=== PATIENT | female | born 1935 | race Caucasian/White ===

== ENCOUNTER 2018-10-02 15:39 | Emergency (ER) | payer MEDICARE ==
[~2018-10-02] VITALS: Ht 152.4 cm; Wt 61.7 kg
[~2018-10-02 15:39] MED LIST: ACIDOPHILUS1 EAC4; CALCIUM 500+D1 EACH PO; CALCIUM 600 +1 EAC8; COQ-10; CRESTOR10 MG PO; NEXIUM40 MG PO; ULTRAM50 MG PO
[2018-10-02 16:24] LABS: BASOPHILS % 0.4 % (0.0-1.0); EOSINOPHILS # (AUTO) 0.1 (0.0-0.4); EOSINOPHILS % 0.5 % (0.0-6.0); HEMATOCRIT 40.7 % (34.2-44.1); HEMOGLOBIN 13.6 g/dL (12.0-16.0); LYMPHOCYTES # (AUTO) 0.8 (1.0-3.2); LYMPHOCYTES % 7.2 % (18.0-39.1); MEAN CORPUSCULAR HEMOGLOBIN 29.7 pg (28-32); MEAN CORPUSCULAR HGB CONC 33.4 g/dL (31-35); MEAN CORPUSCULAR VOLUME 88.9 fL (81-99); MONOCYTES # (AUTO) 0.6 (0.2-0.8); MONOCYTES % 5.6 % (4.4-11.3); NEUTROPHILS # (AUTO) 9.1 (2.1-6.9); PLATELET COUNT 276 x10e3/uL (140-360); RED BLOOD COUNT 4.58 x10e6/uL (3.6-5.1); RED CELL DISTRIBUTION WIDTH 13.3 % (11.7-14.4)
[2018-10-02 16:42] LABS: ALANINE AMINOTRANSFERASE 14 IU/L (0-55); ALBUMIN 3.8 g/dL (3.5-5.0); ALBUMIN/GLOBULIN RATIO 1.1 (0.8-2.0); ALKALINE PHOSPHATASE 84 IU/L (40-150); BLOOD UREA NITROGEN 15 mg/dL (7-26); BUN/CREATININE RATIO 20 (6-25); CALCIUM 9.6 mg/dL (8.4-10.2); CARBON DIOXIDE 28 mmol/L (22-29); CHLORIDE 101 mmol/L (98-107); CREATINE KINASE 72 IU/L (29-168); CREATININE, SERUM 0.75 mg/dL (0.57-1.11); EST GLOMERULAR FILTRATION RATE > 60 ML/MIN (60-); GLUCOSE 105 mg/dL (74-118); LIPASE 9 U/L (8-78); SODIUM 138 mmol/L (136-145)
--- NOTE | 2018-10-02 16:59 | Diagnostic Imaging Report ---
Exam: Chest one view Clinical history: Stomach cramps Comparison: March 21, 2009 Findings: There is no evidence of pulmonary consolidation, pleural effusion, or pneumothorax. The cardiac size is within normal limits. The regional osseous structures are unremarkable. Impression: 1. No radiographic evidence of acute cardiorespiratory disease. Signed by: Dr. Fab Del Cid MD on 10/02/2018 4:55 PM
--- NOTE | 2018-10-02 18:19 | Diagnostic Imaging Report ---
EXAM: CT Abdomen and Pelvis WITH contrast INDICATION: ^abd pain ^[id number] ^1715 COMPARISON: CT dated 04/16/2014 TECHNIQUE: Abdomen and pelvis were scanned utilizing a multidetector helical scanner from the lung base to the pubic symphysis after administration of IV contrast. Coronal and sagittal reformations were obtained. Dose modulation, iterative reconstruction, and/or weight based adjustment of the mA/kV was utilized to reduce the radiation dose to as low as reasonably achievable. Routine protocol was performed. Scan was performed when during portal venous phase. IV CONTRAST: 100 mL of Isovue-370 ORAL CONTRAST: Water COMPLICATIONS: None RADIATION DOSE: Total DLP: 325.6 mGy*cm Estimated effective dose: (DLP x 0.015 x size factor) mSv CTDIvol has been reviewed. It is below the limits set by the Radiation Protocol Committee (RPC). FINDINGS: LINES and TUBES: None. LOWER THORAX: Unremarkable. Bilateral Bochdalek hernia. HEPATOBILIARY: Segment IV, 1.3 cm hypodensity and segment 5 tiny hypodensity (series 2, image 33) are unchanged since prior CT and are probably cysts. There is a new or more conspicuous segment V, 0.4 cm hypodensity. No hepatic mass. No biliary ductal dilation. GALLBLADDER: No radio-opaque stones or sludge. No wall thickening. SPLEEN: No splenomegaly. PANCREAS: No focal masses or ductal dilatation. ADRENALS: No adrenal nodules KIDNEYS/URETERS: Kidneys enhance symmetrically. No hydronephrosis. No cystic or solid mass lesions. No stones. Few too small to characterize hypodensities. GI TRACT: No abnormal distention or evidence of bowel obstruction. Mild wall thickening of the transverse and ascending colon, could be due to underdistention. Fluid-filled small bowel loops. Colonic diverticulosis without evidence of diverticulitis. Moderate size hiatal hernia. Appendix is normal. PELVIC ORGANS/BLADDER: Unremarkable. LYMPH NODES: No lymphadenopathy. VESSELS: There is mild atherosclerotic disease in the aorta and major arterial branches. PERITONEUM / RETROPERITONEUM: No free air or fluid. BONES: Generalized demineralization. Grade 1or 2 retrolisthesis of L5 in relation to L4. L4-L5 and L5-S1 degenerative changes. SOFT TISSUES: Unremarkable. IMPRESSION: 1. Mild wall thickening of the ascending and transverse colon as well as fluid-filled small bowel loops. Enterocolitis cannot be excluded in the appropriate clinical context. Otherwise, no acute inflammatory process in the abdomen/pelvis. 2. Hepatic hypodensities, likely cysts. 3. Colonic diverticulosis without evidence of diverticulitis. 4. Moderate size hiatal hernia. Signed by: Dr. Torsten Centeno MD on 10/02/2018 6:16 PM
[2018-10-02] MEDS ORDERED: CIPRO500 MG PO (18:42)
[2018-10-02] MEDS ORDERED: FLAGYL500 MG PO (18:42)
[2018-10-02] MEDS ORDERED: IOPAMIDOL 370 MG/ML 200 ML INFUS..BTL INJ ONE (18:53)
[2018-10-02] MEDS ORDERED: SODIUM CHLORIDE 0.9% 50ML 50 ML ONE (18:53)
[2018-10-02 19:37] VITALS: BP 115/68
== END 2018-10-02 19:40 | disposition home or self-care (01) ==
LOC: ER 15:47
DX: K52.9 Noninfective gastroenteritis and colitis, unspecified (principal); K57.30 Diverticulosis of large intestine without perforation or abscess without bleeding; K44.9 Diaphragmatic hernia without obstruction or gangrene; K76.9 Liver disease, unspecified
CPT/HCPCS: 36415; 71045; 74177; 80053; 82550; 82553; 83690; 84484; 85025; 93005; 99284; Q9967

== ENCOUNTER 2018-10-21 09:35 | Emergency (ER) | payer MEDICARE ==
[~2018-10-21] VITALS: Ht 152.4 cm; Wt 61.2 kg
[~2018-10-21 09:35] MED LIST changes: +CIPRO500 MG PO; +FLAGYL500 MG PO
--- OUTSIDE RECORDS SUMMARY | 2018-10-21 09:39 | XMS REPORT | Clinical Summary ---
[facility] Address Unknown Phone Unavailable Care Team Providers Care Geotechnical Intern Name Role Phone Shalini Mayers MD PCP Allergies Comments Active Allergy Reactions Severity Noted Date Severe headache Indomethacin Sodium Other (See 10/02/2012 Comments) Medications End Date Status Medication Sig Dispensed Refills Start Date Active esomeprazole (NEXIUM) 40 Take 40 mg by 0 MG capsule mouth. Active rosuvastatin (CRESTOR) 10 Take 10 mg by 0 MG tablet mouth daily. Active calcium carbonate-vitamin Take 1 tablet 0 D3 (CALCIUM 600 + D,3,) by mouth 600 mg(1,500mg) -400 unit daily. Tab Active coenzyme Q10 200 mg Take 200 mg 0 capsule by mouth. Active multivitamin (THERAGRAN) Take 1 tablet 0 per tablet by mouth. Active cholecalciferol, vitamin Take 1,000 0 D3, (VITAMIN D3) 1,000 Units by unit capsule mouth. Active aspirin 81 MG EC tablet Take 81 mg by 0 mouth daily. Active lactobacillus acidophilus Take by mouth 0 (ACIDOPHILUS) Cap daily. Active Problems Problem Noted Date Right bundle branch block 10/03/2012 Osteoarthritis 10/03/2012 Osteoporosis 10/03/2012 Hx of breast cancer 10/03/2012 Overview: 1976 Radical mastectomy on the right side followed by 27 doses of radiation 1999 mastectomy on left, no recurrence- took Tamofixen and another agent x 5 yrs 2003 revision of left scar tissue Mesenteric ischemia, presenting as GI bleed 5 yrs ago. No etiology was 10/03/2012 determined. Syncope 10/02/2012 Hyperlipidemia GERD (gastroesophageal reflux disease) Family History Medical History Relation Name Comments Heart disease Father Cancer Maternal Aunt Sofia stomach Cancer Maternal Aunt Roseann breast Hyperlipidemia Mother Hypertension Mother Cancer Paternal Grandmother Relation Name Status Comments Father Maternal Aunt Sofia Maternal Aunt Roseann Alive Mother Paternal Grandmother Sister Dayna Alive Sister Jose Manuel Alive Social History Date Tobacco Use Types Packs/Day Years Used 02/12/1960 - 10/03/1967 Former Smoker Cigarettes 0.2 7 Smokeless Tobacco: Never Used Alcohol Use Drinks/Week oz/Week Comments No Sex Assigned at Date Recorded Not on file Industry Job Start Date Occupation Not on file Not on file Not on file Travel End Travel History Travel Start No recent travel history available. Last Filed Vital Signs Not on file Plan of Treatment Health Maintenance Due Date Last Done Comments INFLUENZA VACCINE 11/11/2017 Results Not on fileafter 10/20/2017 Insurance Payer Benefit Subscriber ID Type Phone Address Plan / Group [employer] - MEDICARE [employer] xxxxxxxx [phone] [address] [place] [address] HMO POS PPO
--- OUTSIDE RECORDS SUMMARY | 2018-10-21 09:39 | XMS REPORT | Summary of Care ---
Author Author EVARISTO LEAL M.D. Organization Unknown Address [facility] Phone Unavailable Care Team Providers Care Risk Compliance Manager Name Role Phone EVARISTO LEAL M.D. Unavailable Unavailable Unavailable Unavailable Functional Status Name Dates Details Functional status health issues are not documented Status: Name Dates Details Cognitive status health issues are not documented Status: Problems Name Dates Details Primary localized osteoarthritis of knees, bilateral (715.16, M17.0) Status: Active Bilateral knee pain (719.46, M25.561) Status: Active Medications Name Dates Details NexIUM PACK Active OrthoVisc 30 MG/2ML Intra-articular Solution Prefilled Syringe 30mg 2ml syringe per knee, reuires 2 per week for 4 weeks,8 total mailed to clin ic or patient * Quantity: 4 Refills: 0 EVARISTO LEAL M.D. * Start : 24-May-2017 Active 2 ML Syringe Allergies and Adverse Reactions Name Dates Details No Known Drug Allergies (Allergy) Status: Active Past Medical History Name Dates Details History of malignant neoplasm (V10.90, Z85.9) Status: Resolved Procedures Procedure Dates Details History of Mastectomy Completed Immunization Name Dates Details Immunizations not documented Social History Name Dates Details Unknown if ever smoked Vital Signs Date Test Result Details No Known Vitals to report Results Date Description Value Details Results not documented Plan of Care Name Dates Details Planned Observations Planned Goals not documented Planned Encounters Physical Therapy Referral Ortho Appointment; EVARISTO LEAL M.D. On: 27-Jun-2017 8:00 Instructions Name Dates Details Instructions not documented Encounters Appointment; EVARISTO LEAL M.D. Encounter Diagnosis: Problem not documented On: 09-May-2017 8:00 Appointment; EVARISTO LEAL M.D. Encounter Diagnosis: Problem not documented On: 13-Jun-2017 8:00 Appointment; EVARISTO LEAL M.D. Encounter Diagnosis: Problem not documented On: 20-Jun-2017 8:00
--- OUTSIDE RECORDS SUMMARY | 2018-10-21 09:40 | XMS REPORT ---
Author Author [facility] Address Unknown Phone Unavailable Care Team Providers Care Groover Operator Name Role Phone Radha HOOPER Unavailable Unavailable Payers Payer Name Policy Type Policy Number Effective Date Expiration Date Problems This patient has no known problems. Allergies, Adverse Reactions, Alerts Allergy Name Allergy Type Status Severity Reaction(s) Onset Date Inactive Date Treating Clinician Comments indomethacin sodium DA Active U 2011-05-12 00:00:00 indomethacin DA Active U 2011-05-12 00:00:00 Medications This patient has no known medications. Results Test Description Test Time Test Comments Text Results Atomic Results Result Comments CT ABDOMEN/PELVIS W 2018-10-02 18:04:00 [place] [address] Patient Name: GUERO ROMERO MR #: [id number] : 1935 Age/Sex: 83/F Req #: [id number] Adm Physician: Ordered by: JON HOOPER MD Report #: [id number] Location: ER Room/Bed: Procedure: [id number] CT/CT ABDOMEN/PELVIS W Exam Date: 10/02/18 Exam Time: 1715 REPORT STATUS: Signed EXAM: CT Abdomen and Pelvis WITH contrast INDICATIO N: abd pain [id number] 1715 COMPARISON: CT dated 04/16/2014 TECHNIQUE: Abdomen and pelvis were scanned utilizing a multidetector helical scanner from the lung base to the pubic symphysis after administration of IV contrast. Coronal and sagittal reformations were obtained. Dose modulation, iterative reconstruction, and/or weight based adjustment of the mA/kV was utilized to reduce the radiation dose to as low as reasonably achievable. Routine protocol was performed. Scan was performed when during portal venous phase. IV CONTRAST: 100 mL of Isovue-370 ORAL CONTRAST: Water COMPLICATIONS: None RADIATION DOSE: Total DLP: 325.6 mGy*cm Estimated effective dose: (DLP x 0.015 x size factor) mSv CTDIvol has been reviewed. It is below the limits set by the Radiation Protocol Committee (RPC). FINDINGS: LINES and TUBES: None. LOWER THORAX: Unremarkable. Bilateral Bochdalek hernia. HEPATOBILIARY: Segment IV, 1.3 cm hypodensity and segment 5 tiny hypodensity (series 2, image 33) are unchanged since prior CT and are probably cysts. There is a new or more conspicuous segment V, 0.4 cm hypodensity. No hepatic mass. No biliary ductal dilation. GALLBLADDER: No radio-opaque stones or sludge. No wall thickening. SPLEEN: No splenomegaly. PANCREAS: No focal masses or ductal dilatation. ADRENALS: No adrenal nodules KIDNEYS/URETERS: Kidneys enhance symmetrically. No hydronephrosis. No cystic or solid mass lesions. No stones. Few too small to characterize hypodensities. GI TRACT: No abnormal distention or evidence of bowel obstruction. Mild wall thickening of the transverse and ascending colon, could be due to underdistention. Fluid- filled small bowel loops. Colonic diverticulosis without evidence of diverticulitis. Moderate size hiatal hernia. Appendix is normal. PELVIC ORGANS/BLADDER: Unremarkable. LYMPH NODES: No lymphadenopathy. VESSELS: There is mild atherosclerotic disease in the aorta and major arterial branches. PERITONEUM / RETROPERITONEUM: No free air or fluid. BONES: Generalized demineralization. Grade 1or 2 retrolisthesis of L5 in relation to L4. L4-L5 and L5-S1 degenerative changes. SOFT TISSUES: Unremarkable. IMPRESSION: 1. Mild wall thickening of the ascending and transve rse colon as well as fluid-filled small bowel loops. Enterocolitis cannot be excluded in the appropriate clinical context. Otherwise, no acute inflammatory process in the abdomen/pelvis. 2. Hepatic hypodensities, likely cysts. 3. Colonic diverticulosis without evidence of diverticulitis. 4. Moderate size hiatal hernia. Signed by: Dr. Torsten Delong MD on 10/02/2018 6:16 PM Dictated By: TORSTEN DELONG MD 15 Transcribed By: GURVINDER on 10/02/181815 COPY TO: JON HOOPER MD CHEST SINGLE (PORTABLE) 2018-10-02 16:54:00 [place] [address] Patient Name: GUERO ROMERO MR #: [id number] : 1935 Age/Sex: 83/F Req #: [id number] Adm Physician: Ordered by: JON HOOPER MD Report #: [id number] Location: ER Room/Bed: Procedure: [id number] DX/CHEST SINGLE (PORTABLE) Exam Date: 10/02/18 Exam Time: 1600 REPORT STATUS: Signed Exam: Chest one view Clinical history: Stomach c ramps Comparison: March 21, 2009 Findings: There is no evidence of pulmonary consolidation, pleural effusion, or pneumothorax. The cardiac size is within normal limits. The regional osseous structures are unremarkable. Impression: 1. No radiographic evidence of acute cardiorespiratory disease. Signed by: Dr. Fab Del Cid MD on 10/02/2018 4:55 PM Dictated By: ROMEL DEL CID MD [id number] Transcribed By: GURVINDRE on 10/02/18 [id number] COPY TO: JON HOOPER MD
--- NOTE | 2018-10-21 11:00 | NUR ---
PT RESTING, VITAL SIGNS STABLE, FAMILY AT BEDSIDE, PT VOICES NO COMPLAINTS AT THIS TIME.
--- NOTE | 2018-10-21 11:20 | Diagnostic Imaging Report ---
Chest, 2 views, 10/21/2018. History: Syncope. Comparison: 10/02/2018. Findings: The cardiomediastinal silhouette and pulmonary vasculature are within normal limits. The lungs are clear without evidence of consolidation or pleural effusion. Degenerative changes are present in the thoracic spine and right shoulder. Surgical clips are noted in the left axilla. There are no acute osseous or soft tissue abnormalities. Impression: No acute cardiopulmonary abnormality. Signed by: Wilmer Centeno on 10/21/2018 11:17 AM
--- NOTE | 2018-10-21 11:27 | Diagnostic Imaging Report ---
Examination: CT head without contrast Clinical Indication: Syncope with collapse.. Technique: Transaxial noncontrast images from the skull base through the vertex were obtained. Sagittal and coronal reformatted images were done. Dose modulation, iterative reconstruction, and/or weight based adjustment of the mA/kV was utilized to reduce the radiation dose to as low as reasonably achievable. Comparison: None. Findings: Scalp: No abnormalities. Bones: Intact. No fractures. No blastic or lytic lesions. Brain sulci: Appropriate for patient's age. Ventricles: Normal in size and configuration. No hydrocephalus. . Extra-axial space: No abnormalities. Parenchyma: There are patchy areas of low-attenuation within subcortical and periventricular white matter, nonspecific, but could represent microvascular ischemic disease. No masses, hemorrhage, or acute or chronic cortical based vascular insults. Suprasellar region: No abnormalities. Craniocervical junction: The foramen magnum is patent. No Chiari one malformation. Incidental findings: Atherosclerotic calcification of the cavernous and supraclinoid internal carotid and V4 segments of the bilateral vertebral arteries. Impression: 1. No acute intracranial finding. 2. Mild chronic microvascular ischemic change. Signed by: Dr. Vanesa Barber M.D. on 10/21/2018 11:24 AM
--- NOTE | 2018-10-21 12:00 | NUR ---
PT RESTING, VITAL SIGNS STABLE.
[2018-10-21] MEDS ORDERED: ACETAMINOPHEN 325 MG TAB ONE (12:38)
[2018-10-21] MEDS ORDERED: ACETAMINOPHEN 325 MG TAB PO ONE (12:45)
--- NOTE | 2018-10-21 13:09 | NUR ---
PT TO BE TRANSFERRED, PT AND FAMILY AWARE OF POC, TRANSFER TO [facility]
[2018-10-21] MEDS ORDERED: CEFTRIAXONE SOD 1 GM/NS 50 ML 50 ML IV ONE ×2 (13:15)
--- NOTE | 2018-10-21 13:34 | NUR ---
PTS BROUGHT PT LUNCH TO EAT, PT EATING AND DRINKING, VITAL SIGNS STABLE. PT VOICES NO COMPLAINTS AT THIS TIME.
--- NOTE | 2018-10-21 14:04 | NUR ---
[facility] CALLED FOR TRANSPORT 35 MIN ETA
[2018-10-21 14:26] VITALS: BP 150/67
== END 2018-10-21 14:33 | disposition other institution (70) ==
LOC: FSED 09:35
DX: R55 Syncope and collapse (principal); R42 Dizziness and giddiness; N30.90 Cystitis, unspecified without hematuria; K21.9 Gastro-esophageal reflux disease without esophagitis; M25.562 Pain in left knee; M25.561 Pain in right knee
CPT/HCPCS: 70450; 71046; 80048; 80076; 81003; 82553; 83880; 84484; 85025; 85379; 87086; 93005; 99284; J0696

== ENCOUNTER 2018-11-05 17:12 | Emergency (ER) | payer MEDICARE ==
[~2018-11-05] VITALS: Ht 304.8 cm; Wt 61.2 kg
--- OUTSIDE RECORDS SUMMARY | 2018-11-05 17:16 | XMS REPORT | Clinical Summary ---
Author Author OCTAVIA idiag [employer] [facility] Address Unknown Phone Unavailable Care Team Providers Care Jet Worker Name Role Phone Shalini Mayers MD PCP [...] by mouth 0 (ACIDOPHILUS) Cap daily. Active calcium carbonate/vitamin Use as 0 D3 (CALCIUM 500 + D, D3, directed 500 ORAL) mg in the mouth or throat as needed. Active ibuprofen (ADVIL,MOTRIN) Take 800 mg 0 800 MG tablet by mouth as needed. Active cycloSPORINE (RESTASIS) Place 0.5 0 0.05 % ophthalmic drops into emulsion both eyes 2 (two) times daily. 10/23/2018 Discontinued esomeprazole (NEXIUM) 40 Take 40 mg by 0 MG capsule mouth daily. 10/28/2018 ciprofloxacin HCl (CIPRO) Take 1 tablet 10 tablet 0 500 MG tablet (500 mg 9 total) by mouth 2 (two) times daily for 5 days. Active Problems Problem Noted Date Right bundle branch block 10/03/2012 Osteoarthritis 10/03/2012 Osteoporosis 10/03/2012 Hx of breast cancer 10/03/2012 Overview: 1975 Radical mastectomy on the right side followed by 27 doses of radiation 1999 mastectomy on left, no recurrence- took Tamofixen and another agent x 5 yrs 2003 revision of left scar tissue Mesenteric ischemia, presenting as GI bleed 5 yrs ago. No etiology was 10/03/2012 determined. Syncope 10/02/2012 Hyperlipidemia GERD (gastroesophageal reflux disease) Encounters Care Team Description Date Type Specialty Shahrzad Martinez MD Waheed, Umar, MD Syncope, unspecified syncope type 10/21/2018 Hospital Cardiology - Encounter 10/23/2018 10/21/2018 Travel Shahrzad Martinez MD 10/21/2018 Documentation Internal Medicine after 11/04/2017 Family History Medical History Relation Name Comments Heart disease Father Cancer Maternal Aunt Sofia stomach Cancer Maternal Aunt Roseann breast Hyperlipidemia Mother Hypertension Mother Cancer Paternal Grandmother Relation Name Status Comments Father Maternal Aunt Sofia Maternal Aunt Roseann Alive Mother Paternal Grandmother Sister Dayna Alive Sister LaDhunter Alive Social History Date Tobacco Use Types [...] travel history available. Last Filed Vital Signs Time Taken Vital Sign Reading 10/23/2018 11:00 AM CDT Blood Pressure 130/63 10/23/2018 11:00 AM CDT Pulse 106 10/23/2018 11:00 AM CDT Temperature 36.1 C (97 F) 10/23/2018 11:00 AM CDT Respiratory Rate 18 10/23/2018 11:00 AM CDT Oxygen Saturation 96% - Inhaled Oxygen - Concentration 10/23/2018 8:22 AM CDT Weight 62.4 kg (137 lb 9.1 oz) 10/21/2018 4:13 PM CDT Height 152.4 cm (5') 10/23/2018 8:22 AM CDT Body Mass Index 26.87 Plan of Treatment Not on file Procedures Comments Procedure Name Priority Date/Time Associated Diagnosis RHYTHM STRIP - SCAN 10/27/2018 2:02 PM CDT REPORT OF PROCEDURE - 10/27/2018 ENDOSCOPY SCAN 9:50 AM CDT RHYTHM STRIP - SCAN 10/27/2018 9:50 AM CDT CBC W/PLT COUNT & AUTO Routine 10/22/2018 DIFFERENTIAL 4:13 AM CDT BASIC METABOLIC PANEL (7) Routine 10/22/2018 4:13 AM CDT CBC W/PLT COUNT & AUTO Routine 10/22/2018 DIFFERENTIAL 4:13 AM CDT TROPONIN I STAT 10/21/2018 11:39 PM CDT 2D ECHO W/ DOPPLER RAD 10/21/2018 (CW/PW/COLOR) 9:35 PM CDT URINALYSIS W/ REFLEX Routine 10/21/2018 URINE CULTURE 6:48 PM CDT TROPONIN I STAT 10/21/2018 5:22 PM CDT after 11/04/2017 Results * RHYTHM STRIP - SCAN (10/27/2018 2:02 PM CDT) Only the most recent of 2 results within the time period is included. Narrative Performed At * EKG-SCANNED (10/27/2018 9:50 AM CDT) Narrative Performed At * CBC with platelet count + automated diff (10/22/2018 4:13 AM CDT) WBC 7.3 3.5 - 10.5 K/L [facility] RBC 4.15 3.93 - 5.22 M/L [facility] Hemoglobin 12.3 11.2 - 15.7 GM/DL [facility] Hematocrit 38.0 34.1 - 44.9 % [facility] MCV 91.6 79.4 - 94.8 fL [facility] MCH 29.6 25.6 - 32.2 pg [facility] MCHC 32.4 32.2 - 35.5 GM/DL [facility] RDW 13.8 11.7 - 14.4 % [facility] Platelets 273 150 - 450 K/CU MM [facility] MPV 9.3 (L) 9.4 - 12.3 fL [facility] nRBC 0 0 - 0 /100 WBC [facility] % Neutros 52 % [facility] % Lymphs 32 % [facility] % Monos 10 % [facility] % Eos 4 % [facility] % Baso 1 % [facility] # Neutros 3.81 1.56 - 6.13 K/L [facility] # Lymphs 2.36 1.18 - 3.74 K/L [facility] # Monos 0.76 (H) 0.24 - 0.36 K/L [facility] # Eos 0.27 0.04 - 0.36 K/L [facility] # Baso 0.07 0.01 - 0.08 K/L [facility] Immature 0 0 - 1 % [facility] Granulocytes-[facility] Specimen Blood Performing Organization Address City/State/Zipcode Phone Number [facility] [address] [place] [address] MEDICAL CENTER * Basic Metabolic Panel (10/22/2018 4:13 AM CDT) Sodium 141 136 - 145 meq/L [facility] Potassium 3.9 3.5 - 5.1 meq/L [facility] Chloride 112 (H) 98 - 107 meq/L [facility] CO2 23 22 - 29 meq/L [facility] BUN 12 7 - 21 mg/dL [facility] Creatinine 0.65 0.57 - 1.25 mg/dL [facility] Glucose 89 70 - 105 mg/dL [facility] Calcium 8.4 8.4 - 10.2 mg/dL [facility] EGFR 87Comment: ESTIMATED GFR IS mL/min/1.73 sq m [facility] NOT ACCURATE CREATININE [facility] CLEARANCE IN PREDICTING GLOMERULAR FILTRATION RATE. ESTIMATED GFR IS NOT APPLICABLE FOR DIALYSIS PATIENTS. Specimen Blood Performing Organization Address City/[facility]/Zipcode Phone Number [place] [phone] * Troponin I (10/21/2018 11:39 PM CDT) Only the most recent of 2 results within the time period is included. Troponin I 0.02 0.00 - 0.03 ng/mL [facility] Specimen Blood Narrative Performed At Troponin I (TnI) levels must be interpreted in the context of the presenting [facility] symptoms and the clinical findings. Elevated TnI levels indicate myocardial [facility] damage, but are not specific for ischemic heart disease. Elevated TnI levels are seen in patients with other cardiac conditions (including myocarditis and congestive heart failure), and slight TnI elevations occur in patients with other conditions, including sepsis, renal failure, acidosis, acute neurological disease, and persistent tachyarrhythmia. Performing Organization Address City/State/Zipcode Phone Number [address] [address] [facility] * 2D Echo W/Doppler(CW/PW/Color) (10/21/2018 9:35 PM CDT) Ejection Fraction [facility] Specimen Narrative Performed At Transthoracic Echocardiography Report (TTE) [facility] E[facility]ART[facility] Demographics [facility] Patient NameGUERO CHOI Date of Study10/21/2018 [place] Female Visit [id number] Unknown Room [id number] Number Date of 1935RefSameera Mckenzie Physician Age 83 year(s)SonographerSifeoma Nassar [facility] Senior Copywriter Adithya Yeepreray Carvajal PhysicianMD Procedure Type of Study TTE procedure:2DECHO W DOPPLER(CW/PW/COLOR) (RAD) Indications:Unexplained Pre-syncope/Syncope. Clinical History CANCER, HLD, RBBB Height: 60 inches Weight: 61.23 kg (135 lbs) BSA: 1.58 m^2 BMI: 26.37 kg/m^2 HR: 112 bpm BP: 130/68 mmHg Summary 1. Normal LV size and function All of the LV segments contract normally . Estimated LVEF by qualitative assessment is normal (55-60%) 2. Degree of diastolic dysfunction (LAP assessment) is inconclusive due to mitral annular calcification . 3. Normal RV size and function. 4. Mild aortic stenosis. VALENTE by CI is 1.55 cm2. 5. Estimated peak systolic PA pressure is 30-35 mmHg . Previous Study In comparison with the prior exam 10-07-12 the following changes are noted: is new . Signature Findings Rhythm/BPSinus tachycardia during the exam. Left Ventricle The left ventricle is chamber size (by PSLAX dimension) is normal (female - LVIDd 3.8-5.2cm) . Normal LV wall thickness. All of the LV segments contract normally . Global LV systolic function normal . Estimated LVEF by qualitative assessment is normal (55-60%) . Degree of diastolic dysfunction (LAP assessment) is inconclusive due to mitral annular calcification . Left AtriumLA size is mildly enlarged (35-41 ml/m2) . Right VentricleThe right ventricular chamber size and systolic function are within normal limits. Right Atrium RA cavity size is normal . Aortic Valve [id number] AoV cusp calcification. AoV cusp mobility is decreased . Mild aortic regurgitation. Mild aortic stenosis. AoV area at rest by continuity equation is in the range of 1.55 cm2. Mitral Valve Mild-moderate mitral annular calcification. Mild MV leaflet thickening. Mild mitral regurgitation. Increased mean gradient across the MV 5.37mmHg secondary to MAC. Tricuspid ValveMild-moderate tricuspid regurgitation. Estimated peak systolic PA pressure is 30-35 mmHg . Pulmonic Valve Normal PV structure and function. AortaAortic root size (SInus of Valsalva diameter) is normal . PericardiumNo significant pericardial effusion is visualized. IVC/SVC/PA/PV/PleuralThe estimated RA pressure by IVC dynamics 5-10mmHg . Chambers/Structures Left Atrium LA Volume: 64.32 ml LA Area: 20.48 cm^2 LA Vol. Index: 41 ml/m^2 Left Ventricle LVIDd: 3.52 cm LVEDV:68.5 ml LV Septum Diastolic: 0.84 cm LV PW Diastolic: 0.81 cm LVOT Diameter: 1.68 cm Right Atrium RA Vol. (Sngl Plane): 29.59 ml Right Ventricle TAPSE: 1.57 cm Aorta Ao Root S of Echo.: 2.5 cm Doppler/Quantitative Measurements Mitral Valve Mean Velocity: 1.09 m/s Mean Gradient: 5.37 mmHg Area (continuity): 1.52 cm^2 MV VTI: 25.74 cm MV Rock. Peak: 1.73 m/s Aortic Valve Peak Velocity: 1.35 m/sMean Velocity: 1.08 m/s Peak Gradient: 7.28 mmHg Mean Gradient: 4.96 mmHg AV Area (continuity): 1.55 cm^2 AV VTI: 25.27 cm AV DVI: 0.7 LVOT Peak Velocity: 0.99 m/s Peak Gradient: 3.91 mmHg Mean Velocity: 0.64 m/s Mean Gradient: 1.99 mmHg LVOT Diameter: 1.68 cmLVOT VTI: 17.67 cm LVOT Area: 2.22 cm^2LVOT SV:39.15 ml LVOT CO: 4.38 l/min LVOT CI: 2.77 l/min/m^2 Tricuspid Valve TR Velocity: 2.47 m/s TR Gradient: 24.39 mmHg Procedure Note Interface, External Ris In - 10/22/2018 3:46 PM CDT Transthoracic Echocardiography Report (TTE) Demographics Patient Name GUERO CHOI Date of Study 10/21/2018 [place] Gender Female Visit Number [id number] Race Unknown Room Number 1060 Number Date of 1935 Referring [facility] Magaly Physician Age 83 year(s) Waste Salvager Flaca Nassar [facility] Senior Copywriter Adithya Sinha Interpreting Physician NEVA Card Procedure Type of Study TTE procedure:2DECHO W DOPPLER(CW/PW/COLOR) (RAD) Indications:Unexplained Pre-syncope/Syncope. Clinical History CANCER, HLD, RBBB Height: 60 inches Weight: 61.23 kg (135 lbs) BSA: 1.58 m^2 BMI: 26.37 kg/m^2 HR: 112 bpm BP: 130/68 mmHg Summary 1. Normal LV size and function All of the LV segments contract normally . Estimated LVEF by qualitative assessment is normal (55-60%) 2. Degree of diastolic dysfunction (LAP assessment) is inconclusive due to mitral annular calcification . 3. Normal RV size and function. 4. Mild aortic stenosis. VALENTE by CI is 1.55 cm2. 5. Estimated peak systolic PA pressure is 30-35 mmHg . Previous Study In comparison with the prior exam 10-07-12 the following changes are noted: is new . Signature Findings Rhythm/BP Sinus tachycardia during the exam. Left Ventricle The left ventricle is chamber size (by PSLAX dimension) is normal (female - LVIDd 3.8-5.2cm) . Normal LV wall thickness. All of the LV segments contract normally . Global LV systolic function normal . Estimated LVEF by qualitative assessment is normal (55-60%) . Degree of diastolic dysfunction (LAP assessment) is inconclusive due to mitral annular calcification . Left Atrium LA size is mildly enlarged (35-41 ml/m2) . Right Ventricle The right ventricular chamber size and systolic function are within normal limits. Right Atrium RA cavity size is normal . Aortic Valve Rpti-[id number] AoV cusp calcification. AoV cusp mobility is decreased . Mild aortic regurgitation. Mild aortic stenosis. AoV area at rest by continuity equation is in the range of 1.55 cm2. Mitral Valve Mild-moderate mitral annular calcification. Mild MV leaflet thickening. Mild mitral regurgitation. Increased mean gradient across the MV 5.37mmHg secondary to MAC. Tricuspid Valve Mild-moderate tricuspid regurgitation. Estimated peak systolic PA pressure is 30-35 mmHg . Pulmonic Valve Normal PV structure and function. Aorta Aortic root size (SInus of Valsalva diameter) is normal . Pericardium No significant pericardial effusion is visualized. IVC/SVC/PA/PV/Pleural The estimated RA pressure by IVC dynamics 5-10mmHg . Chambers/Structures Left Atrium LA Volume: 64.32 ml LA Area: 20.48 cm^2 LA Vol. Index: 41 ml/m^2 Left Ventricle LVIDd: 3.52 cm LVEDV:68.5 ml LV Septum Diastolic: 0.84 cm LV PW Diastolic: 0.81 cm LVOT Diameter: 1.68 cm Right Atrium RA Vol. (Sngl Plane): 29.59 ml Right Ventricle TAPSE: 1.57 cm Aorta Ao Root S of Echo.: 2.5 cm Doppler/Quantitative Measurements Mitral Valve Mean Velocity: 1.09 m/s Mean Gradient: 5.37 mmHg Area (continuity): 1.52 cm^2 MV VTI: 25.74 cm MV Rock. Peak: 1.73 m/s Aortic Valve Peak Velocity: 1.35 m/s Mean Velocity: 1.08 m/s Peak Gradient: 7.28 mmHg Mean Gradient: 4.96 mmHg AV Area (continuity): 1.55 cm^2 AV VTI: 25.27 cm AV DVI: 0.7 LVOT Peak Velocity: 0.99 m/s Peak Gradient: 3.91 mmHg Mean Velocity: 0.64 m/s Mean Gradient: 1.99 mmHg LVOT Diameter: 1.68 cm LVOT VTI: 17.67 cm LVOT Area: 2.22 cm^2 LVOT SV:39.15 ml LVOT CO: 4.38 l/min LVOT CI: 2.77 l/min/m^2 Tricuspid Valve TR Velocity: 2.47 m/s TR Gradient: 24.39 mmHg Performing Organization Address City/State/Zipcode Phone Number [facility] * Urinalysis w/Microscopic + Reflex to Culture (10/21/2018 6:48 PM CDT) Color, UA Light Yellow [facility] Clarity, UA Clear [facility] Specific [place], UA 1.005 1.001 - 1.035 [facility] pH, UA 6.0 5.0 - 8.0 [facility] Protein, UA Negative Negative [facility] Glucose, UA Negative Negative [facility] Ketones, UA Negative Negative [facility] Bilirubin, UA Negative Negative [facility] Blood, UA Trace (A) Negative [facility] Nitrite, UA Negative Negative [facility] Leukocytes, UA Moderate (A) Negative [facility] Urobilinogen, UA 0.2 0.2 - 1.0 mg/dL [facility] RBC, UA 1 /HPF [facility] WBC, UA 7 /HPF [facility] Bacteria, UA Rare [facility] Squam Epithel, UA 3 /HPF [facility] Specimen Source [facility] Specimen Urine Performing Organization Address City/State/Zipcode Phone Number [facility] [address] [place] [address] MEDICAL CENTER after 11/04/2017 Insurance Payer Benefit Subscriber ID Type Phone Address Plan / Group [employer] - MEDICARE MGD HU[employer]NA xxxxxxxxx [facility] MEDICARE Contracted ADV Advance Directives For more information, please contact: [facility] [address] [place] [address] Date Inactivated Comments Code Status Date Activated 10/23/2018 4:36 PM Full Code 10/21/2018 4:07 PM This code status was determined by: Patient
[2018-11-05 17:49] VITALS: BP 123/58
--- NOTE | 2018-11-05 17:54 | NUR ---
INITIATED TRANSFER TO [facility]
--- NOTE | 2018-11-05 19:15 | NUR ---
REPORT TO SHADI CARMICHAEL
[2018-11-05] MEDS ORDERED: CEPHALEXIN 500 MG CAP PO SCH (19:30)
[2018-11-05] MEDS ORDERED: TRIMETHOPRIM/SULFAMETHOXAZOLE 160-800 MG TAB ONE (20:03)
[2018-11-05] MEDS ORDERED: TRIMETHOPRIM/SULFAMETHOXAZOLE 160-800 MG TAB PO ONE (20:45)
== END 2018-11-05 21:54 | disposition other institution (70) ==
LOC: FSED 17:12
DX: R55 Syncope and collapse (principal); R42 Dizziness and giddiness; I44.2 Atrioventricular block, complete; N30.90 Cystitis, unspecified without hematuria
CPT/HCPCS: 80053; 81003; 83880; 84484; 85025; 93005; 99284

== ENCOUNTER 2020-03-07 14:01 | Observation (INO) | payer MEDICARE ==
[~2020-03-07] VITALS: Ht 152.4 cm; Wt 61.2 kg
[2020-03-07 17:22] LABS: BASOPHILS # (AUTO) 0.1 (0.0-0.1); EOSINOPHILS # (AUTO) 0.2 (0.0-0.4); EOSINOPHILS % 2.1 % (0.0-6.0); HEMATOCRIT 39.8 % (34.2-44.1); HEMOGLOBIN 12.5 g/dL (12.0-16.0); LYMPHOCYTES % 22.6 % (18.0-39.1); MEAN CORPUSCULAR HEMOGLOBIN 29.3 pg (28-32); MEAN CORPUSCULAR HGB CONC 31.4 g/dL (31-35); MEAN CORPUSCULAR VOLUME 93.2 fL (81-99); MONOCYTES # (AUTO) 0.7 (0.2-0.8); MONOCYTES % 8.2 % (4.4-11.3); NEUTROPHILS # (AUTO) 5.9 (2.1-6.9); NEUTROPHILS % 65.8 % (38.7-80.0); PLATELET COUNT 222 x10e3/uL (140-360); RED BLOOD COUNT 4.27 x10e6/uL (3.6-5.1); RED CELL DISTRIBUTION WIDTH 14.5 % (11.7-14.4)
[2020-03-07 17:42] LABS: ALBUMIN 3.8 g/dL (3.5-5.0); ALBUMIN/GLOBULIN RATIO 1.1 (0.8-2.0); ANION GAP 13.1 mmol/L (8-16); CALCIUM 8.6 mg/dL (8.4-10.2); CREATININE, SERUM 0.98 mg/dL (0.57-1.11); POTASSIUM 4.1 mmol/L (3.5-5.1)
[2020-03-07 17:49] LABS: CREATINE KINASE MB 3.4 ng/mL (0-5.0)
[2020-03-07] MEDS ORDERED: IOPAMIDOL 370 MG/ML 200 ML INFUS..BTL INJ ONE (19:19)
[2020-03-07] MEDS ORDERED: SODIUM CHLORIDE 0.9% 50ML 50 ML ONE (19:19)
[2020-03-07 21:00] VITALS: BP 172/78
[2020-03-07 21:25] VITALS: BP 172/78
[2020-03-07] MEDS ORDERED: CARVEDILOL6.25 MG PO (22:26)
[2020-03-07 22:27] VITALS: BP 172/78
[2020-03-08] VITALS (8 sets, daily range): BP systolic 118–162; BP diastolic 59–75
[2020-03-08 05:22] LABS: BASOPHILS # (AUTO) 0.1 (0.0-0.1); BASOPHILS % 1.3 % (0.0-1.0); EOSINOPHILS # (AUTO) 0.2 (0.0-0.4); EOSINOPHILS % 3.4 % (0.0-6.0); HEMATOCRIT 34.7 % (34.2-44.1); HEMOGLOBIN 11.5 g/dL (12.0-16.0); LYMPHOCYTES # (AUTO) 1.7 (1.0-3.2); LYMPHOCYTES % 26.9 % (18.0-39.1); MEAN CORPUSCULAR HEMOGLOBIN 30.6 pg (28-32); MEAN CORPUSCULAR HGB CONC 33.1 g/dL (31-35); MEAN CORPUSCULAR VOLUME 92.3 fL (81-99); MONOCYTES # (AUTO) 0.6 (0.2-0.8); NEUTROPHILS # (AUTO) 3.6 (2.1-6.9); NEUTROPHILS % 58.1 % (38.7-80.0); PLATELET COUNT 166 x10e3/uL (140-360); RED BLOOD COUNT 3.76 x10e6/uL (3.6-5.1); RED CELL DISTRIBUTION WIDTH 14.5 % (11.7-14.4)
[2020-03-08] MEDS ORDERED: ACETAMINOPHEN 325 MG TAB PO PRN (05:30)
[2020-03-08] MEDS ORDERED: HYDRALAZINE HCL 20 MG/ML VIAL IV PRN (05:30)
[2020-03-08] MEDS ORDERED: TEMAZEPAM 7.5 MG CAP PO PRN (05:30)
[2020-03-08] MEDS ORDERED: POLYETHYLENE GLYCOL 3350 17 GM PACK PO PRN (05:30)
[2020-03-08] MEDS ORDERED: ONDANSETRON HCL INJ 2MG/ML 2ML 2 MG/ML VIAL IV PRN (05:30)
[2020-03-08 05:53] LABS: ALANINE AMINOTRANSFERASE 20 IU/L (0-55); ALBUMIN 3.1 g/dL (3.5-5.0); ALBUMIN/GLOBULIN RATIO 1.1 (0.8-2.0); ALKALINE PHOSPHATASE 78 IU/L (40-150); ANION GAP 14.8 mmol/L (8-16); BLOOD UREA NITROGEN 15 mg/dL (7-26); BUN/CREATININE RATIO 21 (6-25); CALCIUM 8.1 mg/dL (8.4-10.2); CARBON DIOXIDE 21 mmol/L (22-29); CHLORIDE 108 mmol/L (98-107); CREATININE, SERUM 0.73 mg/dL (0.57-1.11); EST GLOMERULAR FILTRATION RATE > 60 ML/MIN (60-); GLUCOSE 83 mg/dL (74-118); POTASSIUM 3.8 mmol/L (3.5-5.1); SODIUM 140 mmol/L (136-145)
[2020-03-08] MEDS ORDERED: FAMOTIDINE 20 MG TAB PO SCH (07:30)
[2020-03-08] MEDS ORDERED: METOPROLOL TARTRATE INJ 1 MG/ML VIAL IV PRN (08:15)
[2020-03-08 08:36] LABS: INR 1.06; PROTHROMBIN TIME 14.5 seconds (11.9-14.5)
[2020-03-08] MEDS ORDERED: POTASSIUM CHLORIDE 10MEQ EA PO ONE (08:40)
[2020-03-08] MEDS ORDERED: FUROSEMIDE INJ 10 MG/ML 2 ML VIAL IV ONE (08:45)
[2020-03-08] MEDS: DOCUSATE SODIUM 100 MG CAP PO SCH ×2 (08:58→17:30)
[2020-03-08] MEDS: CARVEDILOL 12.5 MG TAB PO SCH ×2 (08:59→17:31)
[2020-03-08] MEDS ORDERED: CEFTRIAXONE SOD 1 GM/NS 50 ML 50 ML IV SCH (16:00)
[2020-03-08] MEDS ORDERED: AZITHROMYCIN 500MG/NS 250 ML 250 ML IV SCH (17:00)
[2020-03-08] MEDS ORDERED: ENOXAPARIN SOD INJ 40 MG/0.4 ML SYR SC SCH (17:00)
[2020-03-08] MEDS ORDERED: SODIUM CHLORIDE 0.9% 250ML 250 ML ONE (17:21)
[2020-03-09] VITALS: BP 96/57
[2020-03-09 04:00] VITALS: BP 123/59
[2020-03-09 05:14] LABS: BASOPHILS # (AUTO) 0.1 (0.0-0.1); BASOPHILS % 1.4 % (0.0-1.0); EOSINOPHILS # (AUTO) 0.2 (0.0-0.4); EOSINOPHILS % 4.1 % (0.0-6.0); HEMATOCRIT 35.4 % (34.2-44.1); HEMOGLOBIN 11.5 g/dL (12.0-16.0); LYMPHOCYTES # (AUTO) 1.6 (1.0-3.2); LYMPHOCYTES % 27.5 % (18.0-39.1); MEAN CORPUSCULAR HEMOGLOBIN 30.1 pg (28-32); MEAN CORPUSCULAR HGB CONC 32.5 g/dL (31-35); MEAN CORPUSCULAR VOLUME 92.7 fL (81-99); MONOCYTES # (AUTO) 0.6 (0.2-0.8); MONOCYTES % 10.6 % (4.4-11.3); NEUTROPHILS # (AUTO) 3.3 (2.1-6.9); NEUTROPHILS % 56.1 % (38.7-80.0); PLATELET COUNT 177 x10e3/uL (140-360); RED BLOOD COUNT 3.82 x10e6/uL (3.6-5.1); RED CELL DISTRIBUTION WIDTH 14.3 % (11.7-14.4)
[2020-03-09 05:34] LABS: ALANINE AMINOTRANSFERASE 17 IU/L (0-55); ALKALINE PHOSPHATASE 72 IU/L (40-150); BLOOD UREA NITROGEN 18 mg/dL (7-26); BUN/CREATININE RATIO 22 (6-25); CARBON DIOXIDE 21 mmol/L (22-29); CHLORIDE 108 mmol/L (98-107); CREATININE, SERUM 0.81 mg/dL (0.57-1.11); EST GLOMERULAR FILTRATION RATE > 60 ML/MIN (60-); GLUCOSE 97 mg/dL (74-118); SODIUM 140 mmol/L (136-145)
[2020-03-09] MEDS ORDERED: PANTOPRAZOLE SOD 40 MG TABEC PO SCH (07:30)
[2020-03-09] MEDS ORDERED: POTASSIUM CHLORIDE 10MEQ EA PO ONE (08:00)
[2020-03-09] MEDS ORDERED: FUROSEMIDE INJ 10 MG/ML 4 ML VIAL IV ONE (08:00)
[2020-03-09 08:29] VITALS: BP 149/69
[2020-03-09] MEDS: CARVEDILOL 12.5 MG TAB PO SCH (08:42)
[2020-03-09] MEDS: DOCUSATE SODIUM 100 MG CAP PO SCH (08:42)
[2020-03-09 08:49] VITALS: BP 149/69
[2020-03-09 13:32] LABS: BODY FLUID APPEARANCE SL.CLOUDY; BODY FLUID COLOR YELLOW; BODY FLUID TYPE PLEURAL
[2020-03-09 13:33] LABS: RBC,BODY FLUID 952 cells/uL; WBC,BODY FLUID 530 cells/uL
[2020-03-09 14:19] LABS: LYMPHOCYTES,BODY FLUID 89 %; MONO/MACROPHG,BODY FLUID 11 %
== END 2020-03-09 12:00 | disposition home or self-care (01) ==
LOC: ER 14:42 → ERHOLD 14:51 → MED/SURG 21:01
PROVIDERS: ADMIT Internal Medicine; ATTEND Internal Medicine
DX: J90 Pleural effusion, not elsewhere classified (principal); I11.0 Hypertensive heart disease with heart failure; N17.9 Acute kidney failure, unspecified; Z20.822 Contact with and (suspected) exposure to COVID-19; I48.20 Chronic atrial fibrillation, unspecified; Z79.01 Long term (current) use of anticoagulants; R60.0 Localized edema; Z85.3 Personal history of malignant neoplasm of breast; Z87.11 Personal history of peptic ulcer disease; Z90.13 Acquired absence of bilateral breasts and nipples; Z95.0 Presence of cardiac pacemaker; Z96.651 Presence of right artificial knee joint; I50.33 Acute on chronic diastolic (congestive) heart failure; J69.0 Pneumonitis due to inhalation of food and vomit; M81.0 Age-related osteoporosis without current pathological fracture; K21.9 Gastro-esophageal reflux disease without esophagitis
CPT/HCPCS: 32554; 32555; 36415 ×3; 71045 ×3; 71046; 71260; 74470; 80053 ×3; 82550; 82553; 82945; 83615; 83880; 84157; 84478; 84484; 85025 ×3; 85610; 85730; 87070; 87205; 88112; 88305; 89051; 92526; 92610; 93306; 93970; 93971; 97161; 99284; G0378 ×3; J0456; J0696 ×2; J1650; J1940 ×2; J7050; Q9967; S0164; U0002; J2405

== ENCOUNTER 2021-05-21 16:54 | Inpatient (IN) | payer MEDICARE ==
[~2021-05-21] VITALS: Ht 152.4 cm; Wt 61.2 kg
[2021-05-21] MEDS: CEFTRIAXONE 1 GM in SODIUM CHLORIDE 0.9% 50ML 50 ML IV SCH (00:44)
[~2021-05-21 16:54] MED LIST changes: +CARVEDILOL6.25 MG PO
[2021-05-21] MEDS ORDERED: FUROSEMIDE INJ 10 MG/ML 4 ML VIAL IV ONE (17:45)
[2021-05-21] MEDS ORDERED: FUROSEMIDE INJ 10 MG/ML 4 ML VIAL ONE (18:23)
[2021-05-21 20:00] VITALS: BP 124/85
[2021-05-21 21:00] VITALS: BP 124/85
[2021-05-21 21:30] VITALS: BP 124/85
[2021-05-21] MEDS: FUROSEMIDE INJ 10 MG/ML 4 ML VIAL IV SCH (21:50)
[2021-05-21] MEDS ORDERED: ALBUTEROL/IPRATROPIUM 3 ML NEB NEB PRN (23:30)
[2021-05-21] MEDS ORDERED: HYDRALAZINE HCL 20 MG/ML VIAL IV PRN (23:30)
[2021-05-21] MEDS ORDERED: ONDANSETRON HCL INJ 2MG/ML 2ML 2 MG/ML VIAL IV PRN (23:30)
[2021-05-22] VITALS (7 sets, daily range): BP systolic 107–135; BP diastolic 51–73
[2021-05-22] MEDS ORDERED: REFRESH PLUS1 EACH OU (00:09)
[2021-05-22] MEDS ORDERED: LASIX40 MG PO (00:09)
[2021-05-22] MEDS ORDERED: SODIUM CHLORIDE 0.9% 250ML 250 ML ONE (00:29)
[2021-05-22] MEDS: ACETAMINOPHEN 325 MG TAB PO PRN ×2 (00:48→10:50)
[2021-05-22] MEDS: ALBUTEROL/IPRATROPIUM 3 ML NEB NEB SCH ×4 (01:30→19:12)
[2021-05-22] MEDS: FUROSEMIDE INJ 10 MG/ML 4 ML VIAL IV SCH ×4 (08:30→21:48)
[2021-05-22] MEDS: PANTOPRAZOLE SOD 40 MG TABEC PO SCH (08:30)
[2021-05-22 09:29] LABS: BASOPHILS # (AUTO) 0.1 (0.0-0.1); EOSINOPHILS # (AUTO) 0.1 (0.0-0.4); EOSINOPHILS % 1.8 % (0.0-6.0); HEMATOCRIT 30.3 % (34.2-44.1); HEMOGLOBIN 9.9 g/dL (12.0-16.0); LYMPHOCYTES % 16.5 % (18.0-39.1); MEAN CORPUSCULAR HEMOGLOBIN 29.7 pg (28-32); MEAN CORPUSCULAR HGB CONC 32.7 g/dL (31-35); MONOCYTES # (AUTO) 0.7 (0.2-0.8); MONOCYTES % 10.9 % (4.4-11.3); NEUTROPHILS # (AUTO) 4.2 (2.1-6.9); NEUTROPHILS % 69.5 % (38.7-80.0); PLATELET COUNT 218 x10e3/uL (140-360); RED BLOOD COUNT 3.33 x10e6/uL (3.6-5.1); RED CELL DISTRIBUTION WIDTH 13.6 % (11.7-14.4)
[2021-05-22] MEDS: CARVEDILOL 12.5 MG TAB PO SCH ×2 (09:45→17:00)
[2021-05-22 09:49] LABS: ANION GAP 13.1 mmol/L (8-16); CALCIUM 8.3 mg/dL (8.4-10.2); CREATININE, SERUM 0.67 mg/dL (0.57-1.11); POTASSIUM 3.1 mmol/L (3.5-5.1)
[2021-05-22] MEDS ORDERED: POTASSIUM CHLORIDE 10MEQ EA PO ONE (12:30)
[2021-05-22 19:17] LABS: INR 1.17; PROTHROMBIN TIME 15.9 seconds (11.9-14.5)
[2021-05-22] MEDS: CEFTRIAXONE 1 GM in SODIUM CHLORIDE 0.9% 50ML 50 ML IV SCH (21:49)
[2021-05-23] VITALS (8 sets, daily range): BP systolic 93–117; BP diastolic 49–74
[2021-05-23] MEDS: ALBUTEROL/IPRATROPIUM 3 ML NEB NEB SCH ×3 (01:40→19:35)
[2021-05-23 05:48] LABS: BASOPHILS # (AUTO) 0.1 (0.0-0.1); BASOPHILS % 0.8 % (0.0-1.0); EOSINOPHILS # (AUTO) 0.1 (0.0-0.4); EOSINOPHILS % 1.1 % (0.0-6.0); HEMATOCRIT 31.2 % (34.2-44.1); HEMOGLOBIN 10.4 g/dL (12.0-16.0); LYMPHOCYTES # (AUTO) 1.5 (1.0-3.2); LYMPHOCYTES % 15.1 % (18.0-39.1); MEAN CORPUSCULAR HEMOGLOBIN 30.1 pg (28-32); MEAN CORPUSCULAR HGB CONC 33.3 g/dL (31-35); MEAN CORPUSCULAR VOLUME 90.4 fL (81-99); MONOCYTES # (AUTO) 1.1 (0.2-0.8); MONOCYTES % 11.2 % (4.4-11.3); NEUTROPHILS # (AUTO) 7.1 (2.1-6.9); NEUTROPHILS % 71.3 % (38.7-80.0); PLATELET COUNT 249 x10e3/uL (140-360); RED BLOOD COUNT 3.45 x10e6/uL (3.6-5.1); RED CELL DISTRIBUTION WIDTH 13.4 % (11.7-14.4)
[2021-05-23 06:23] LABS: ANION GAP 13.4 mmol/L (8-16); CALCIUM 8.5 mg/dL (8.4-10.2); CREATININE, SERUM 0.67 mg/dL (0.57-1.11); POTASSIUM 3.4 mmol/L (3.5-5.1)
[2021-05-23] MEDS: FUROSEMIDE INJ 10 MG/ML 4 ML VIAL IV SCH ×2 (08:47→12:00)
[2021-05-23] MEDS: PANTOPRAZOLE SOD 40 MG TABEC PO SCH (08:47)
[2021-05-23] MEDS: AZITHROMYCIN 250 MG TAB PO SCH (08:48)
[2021-05-23] MEDS: CARVEDILOL 12.5 MG TAB PO SCH ×2 (08:49→17:00)
[2021-05-23] MEDS ORDERED: MAGNESIUM/ALUMINUM/SIMETHICONE 30 ML UDC PO PRN ×2 (10:30→11:00)
[2021-05-23] MEDS: CEFTRIAXONE 1 GM in SODIUM CHLORIDE 0.9% 50ML 50 ML IV SCH (21:33)
[2021-05-24] VITALS: BP 99/65
[2021-05-24] MEDS: ALBUTEROL/IPRATROPIUM 3 ML NEB NEB SCH ×2 (00:10→07:32)
[2021-05-24 04:00] VITALS: BP 121/67
[2021-05-24 06:13] LABS: BASOPHILS # (AUTO) 0.1 (0.0-0.1); BASOPHILS % 0.9 % (0.0-1.0); EOSINOPHILS # (AUTO) 0.2 (0.0-0.4); EOSINOPHILS % 2.5 % (0.0-6.0); HEMATOCRIT 31.1 % (34.2-44.1); HEMOGLOBIN 10.2 g/dL (12.0-16.0); LYMPHOCYTES # (AUTO) 1.8 (1.0-3.2); LYMPHOCYTES % 21.6 % (18.0-39.1); MEAN CORPUSCULAR HEMOGLOBIN 29.6 pg (28-32); MEAN CORPUSCULAR HGB CONC 32.8 g/dL (31-35); MEAN CORPUSCULAR VOLUME 90.1 fL (81-99); MONOCYTES # (AUTO) 1.1 (0.2-0.8); NEUTROPHILS % 61.8 % (38.7-80.0); PLATELET COUNT 244 x10e3/uL (140-360); RED BLOOD COUNT 3.45 x10e6/uL (3.6-5.1); RED CELL DISTRIBUTION WIDTH 13.4 % (11.7-14.4)
[2021-05-24 06:39] LABS: ANION GAP 15.1 mmol/L (8-16); CALCIUM 8.6 mg/dL (8.4-10.2); CREATININE, SERUM 0.72 mg/dL (0.57-1.11); POTASSIUM 3.1 mmol/L (3.5-5.1)
[2021-05-24 06:40] LABS: MAGNESIUM 1.9 MG/DL (1.3-2.1); PHOSPHORUS 4.4 MG/DL (2.3-4.7)
[2021-05-24 07:54] VITALS: BP 121/50
[2021-05-24 09:00] VITALS: BP 121/50
[2021-05-24] MEDS ORDERED: POTASSIUM CHLORIDE 20 MEQ TAB CR PO ONE (09:00)
[2021-05-24] MEDS: CARVEDILOL 12.5 MG TAB PO SCH (09:00)
[2021-05-24] MEDS: FUROSEMIDE INJ 10 MG/ML 4 ML VIAL IV SCH (09:17)
[2021-05-24] MEDS: PANTOPRAZOLE SOD 40 MG TABEC PO SCH (09:17)
[2021-05-24] MEDS: AZITHROMYCIN 250 MG TAB PO SCH (09:17)
[2021-05-24] MEDS ORDERED: K DUR10 MEQ PO (10:37)
[2021-05-24] MEDS ORDERED: POTASSIUM CHLORIDE 10MEQ EA PO ONE (11:00)
== END 2021-05-24 10:50 | disposition home or self-care (01) | DRG 291 ==
LOC: FSED 17:15 → ERHOLD 19:13 → MED/SURG3 21:01
PROVIDERS: ADMIT Internal Medicine; ATTEND Internal Medicine
DX: I11.0 Hypertensive heart disease with heart failure (principal); I50.33 Acute on chronic diastolic (congestive) heart failure; J18.9 Pneumonia, unspecified organism; J96.01 Acute respiratory failure with hypoxia; I25.10 Atherosclerotic heart disease of native coronary artery without angina pectoris; K21.9 Gastro-esophageal reflux disease without esophagitis; I35.0 Nonrheumatic aortic (valve) stenosis; E04.1 Nontoxic single thyroid nodule; Z82.49 Family history of ischemic heart disease and other diseases of the circulatory system; Z95.810 Presence of automatic (implantable) cardiac defibrillator; Z96.651 Presence of right artificial knee joint; Z88.8 Allergy status to other drugs, medicaments and biological substances; Z20.822 Contact with and (suspected) exposure to COVID-19; Z85.3 Personal history of malignant neoplasm of breast
CPT/HCPCS: 36415; 71045; 71250; 74176; 76604; 80048; 80076; 81003; 82553; 83735; 83880; 84100; 84484; 85025; 85610; 93005; 93306; 94640; 94799; 96374; 99284; J0456; J0696; J1940; J7050; U0002